=== PATIENT | female | born 1940 | race Caucasian/White ===

== ENCOUNTER → 2020-04-12 11:28 | Outpatient (CLI) | payer MEDICARE, OTHER, SELFPAY ==
[2020-04-13 15:52] LABS: COVID19 Sendout Not Detected (Not Detect)
== END ==
PROVIDERS: PCP Physician Assistant Medical; Visit Provider Physician Assistant
DX: Z11.59 Encounter for screening for other viral diseases (principal)
CPT/HCPCS: 87635

== ENCOUNTER 2020-04-15 09:18 | Day surgery (SDC) | payer MEDICARE, OTHER, SELFPAY ==
[2020-04-15] MEDS: PROPARACAINE 0.5% OPHTH SOL 2 DROPS EYE-OP (10:17)
[2020-04-15] MEDS: CATARACT EYE COMPOUND (10 DROPS/SYRINGE) 3 DROPS EYE-OP (10:18)
[2020-04-15 10:26] VITALS: BP 189/79; PULSE 78; RESP 16; TEMP 36.9; O2SAT 100; BMI 23.2
--- NOTE | 2020-04-15 11:15 | P.OP_ITS ---
Operative Date/Time/Diagnoses Pre-op diagnosis: Nuclear Cataract Left eye Post-op diagnosis: same Procedure & Clinicians Same procedure as scheduled: Yes Surgeon: Mars Martines Anesthesia Type: MAC +/- and Sedation Operative Notes Procedure in detail: Patient brought to the operating suite. Tetracaine drops placed in the left eye. Patient was prepped and draped in sterile manner. Wire lid speculum was placed in the eye. Betadine drops were placed on the eye. This was irrigated. Lidocaine jelly was placed on the eye. A paracentesis port was created with a side-port blade. 0.1 mL 1% preservative free lidocaine was injected into the anterior chamber. The anterior chamber was deepened with viscoelastic. 2.6 mm keratome was used to create a temporal clear corneal incision. Cystotome and Utrata forceps were used to create continuous tear capsulorrhexis. Balanced salt solution was used to hydro dissect the nucleus. The phacoemulsification handpiece was inserted and the nucleus was removed using the stop and chop technique. The irrigation aspiration handpiece was inserted and the remaining cortex was removed. Anterior chamber was deepened with viscoe lastic. An Hou ZCB00 intraocular lens with a power of 18.5 was injected into the capsular bag. Irrigation aspiration handpiece was inserted and the remaining viscoelastic was removed. Incision was hydrated with balanced salt solution and found to be leak free with pressure with Weck-Joyce sponges. 0.1 mL Vigamox injected anterior chamber. 0.3 mL Kenalog 10 mg was injected subconjunctivally. Lid speculum was removed. The patient left the operating room in excellent condition. Complications: none Post-operative Condition: stable Disposition: same day surgery
--- NOTE | 2020-04-15 11:15 | PM.PREOP ---
Pre-operative Note Interval Note History & Physical reviewed/Exam performed by Physician: Yes Changes to H&P: No
[2020-04-15] MEDS: MOXIFLOXACIN INJ 5 MG/ML VIAL EYE-OP (11:32)
[2020-04-15] MEDS: LIDOCAINE JELLY 2% 5 ML 1 APPLIC TOP (11:32)
[2020-04-15] MEDS: CHONDROIDTIN/SOD HYALURONATE 1.05 ML SYRINGE INTRAOCULA (11:32)
[2020-04-15] MEDS: PHENYLEPHRINE/LIDOCAINE VIAL (OR) 0.2 ML EYE-OP (11:33)
[2020-04-15] MEDS: TRIAMCINOLONE 50 MG/5 ML VIAL INJ (11:33)
[2020-04-15] MEDS: TETRACAINE 0.5% OPHTH DROPS 4 ML 2 DROPS EYE-OP (11:33)
[2020-04-15] MEDS: BALANCED SALT IRRIG SOLN NO.2 500 ML, EPINEPHrine 1 MG IRR (11:34)
[2020-04-15 11:46] VITALS: BP 156/75; PULSE 67; RESP 16; TEMP 36.4
== END 2020-04-15 12:00 | disposition home or self-care (01) ==
PROVIDERS: PCP Physician Assistant Medical; Referring Provider Ophthalmology; Visit Provider Ophthalmology
PROC: (CPT 66984; principal; 2020-04-15 11:15)
DX: H25.12 Age-related nuclear cataract, left eye (principal); I10 Essential (primary) hypertension
CPT/HCPCS: 66984; J0171; J2250; J3301

== ENCOUNTER → 2025-04-01 09:42 | Outpatient (CLI) | payer MEDICARE, OTHER, SELFPAY ==
--- NOTE | 2025-04-01 09:47 | DI.RAD.S_ITS ---
PROCEDURE: XR LUMBAR SPINE MIN 4V INDICATIONS: BACK PAIN TECHNIQUE: 5 views of the lumbar spine were acquired, including bilateral oblique views. COMPARISON: None. FINDINGS: Bones: 5 nonrib-bearing vertebrae are present. There is straightening of normal lumbar lordosis and severe dextroscoliosis of thoracolumbar spine partially visualized on this study. Moderate to severe spondylitic changes are noted throughout lumbar spine. No acute vertebral body compression fractures. No suspicious bony lesions. Soft tissues: Overlying bowel gas pattern is normal. No suspicious soft tissue calcifications. Oblique images: No pars defects. Bilateral bony foraminal stenosis throughout lumbar spine is seen. IMPRESSION: Moderate to severe degenerative disc disease throughout lumbar spine. No acute vertebral body compression fracture or significant spondylolisthesis. No gross pars defects. Suggestion of extensive bilateral neural foraminal narrowing on oblique views. Scoliosis as above. Dictated by: Kike Haile M.D. on 04/01/2025 at 10:35 Approved by: Kike Haile M.D. on 04/01/2025 at 10:36
== END ==
PROVIDERS: PCP Physician Assistant Medical; Referring Provider Physical Medicine & Rehabilitation; Visit Provider Physical Medicine & Rehabilitation
DX: M51.369 Other intervertebral disc degeneration, lumbar region without mention of lumbar back pain or lower extremity pain (principal); M41.9 Scoliosis, unspecified; M54.9 Dorsalgia, unspecified; M47.816 Spondylosis without myelopathy or radiculopathy, lumbar region; M96.1 Postlaminectomy syndrome, not elsewhere classified; M41.20 Other idiopathic scoliosis, site unspecified
CPT/HCPCS: 72110; 99214

== ENCOUNTER → 2025-04-06 13:40 | Outpatient (CLI) | payer MEDICARE, OTHER, SELFPAY ==
--- NOTE | 2025-04-06 13:41 | DI.MRI.S_ITS ---
PROCEDURE: MR LUMBAR SPINE WO CON INDICATIONS: Scoliosis with hx of lami TECHNIQUE: Noncontrast sagittal T1 spin echo and T2 fast echo, sagittal STIR, and T2 fast spin echo through the lumbar spine. In cases with scoliosis, additional coronal T2 fast spin echo may be performed. COMPARISON: [facility], CR, XR LUMBAR SPINE MIN 4V, 04/01/2025, 9:56. FINDINGS: Image quality: Excellent. Alignment and Curvature: Moderate to severe levoconvex curvature. 3 mm grade 1 anterolisthesis of L1 on L2. 5 mm grade 1 anterolisthesis of L4 on L5. 3 mm grade 1 retrolisthesis of L5 on S1. Bone Marrow: Modic type 1 degenerative endplate edema surrounding the T12-L1 disc space. Partial osseous fusion across the L4-5 and L5-S1 disc spaces. Prior laminectomy changes at the L4-5 level. No fixation hardware is present. Marrow is of normal overall signal. No acute vertebral body compression fractures. Spinal Cord: Conus medullaris terminates at the L1 level. Visualized cord demonstrates normal signal and size. Paraspinous Soft Tissues: 1.8 x 2.7 cm oval hypoattenuating mass lesion (6/22) in the aortocaval region at the level of L3-L4. Grade 3 and grade 4 fatty infiltration of the paraspinous musculature. Hiatal hernia. T12-L1: Severe disc space narrowing with posterior disc-osteophyte complex and moderate bilateral facet hypertrophy. Findings result in moderate narrowing of the spinal canal with mild mass effect on the distal spinal cord but no abnormal cord signal. There is crowding of the lateral recesses as well as moderate to severe right and moderate left neural foraminal narrowing. L1-L2: Loss of disc space height with posterior disc-osteophyte complex as well as bilateral facet hypertrophy and buckling of the ligamentum flavum. Findings result in mild narrowing of the spinal canal with effacement of the right lateral recess as well as severe right and moderate left neural foraminal narrowing. L2-L3: Loss of disc space height with questionable partial osseous fusion of cells posterior disc-osteophyte complex and bilateral facet hypertrophy. Findings result in mild narrowing of the spinal canal with crowding of the right lateral recess and moderate right and qtow-sw-vghsdeyu left neural foraminal narrowing. L3-L4: Loss of disc space height with posterior disc-osteophyte complex as well as moderate to severe bilateral facet hypertrophy and buckling of the ligamentum flavum. Findings result in pryi-zy-jhcnptca narrowing of the spinal canal as well as kmka-yd-nrzdbvyj bilateral neural foraminal narrowing. L4-L5: Postsurgical changes. Grade 1 anterolisthesis with osseous bridging across the disc space as well as bilateral facet hypertrophy. There is mild residual narrowing of the spinal canal as well as moderate bilateral neural foraminal narrowing. L5-S1: Osseous bridging across the disc space with posterior disc-osteophyte complex as well as moderate bilateral facet hypertrophy. Findings result in yljt-fi-wrbmrctp bilateral neural foraminal narrowing without significant spinal canal stenosis. IMPRESSION: 1. Postsurgical changes at the L4-5 level from laminectomy with solid osseous fusion across the disc space. 2. At T12-L1, degenerative changes result in moderate narrowing of the spinal canal with mild mass effect on the distal spinal cord without abnormal cord signal. 3. High-grade neural foraminal narrowing at the T12-L1 and L1-2 levels on the right. 4. Additional moderate to severe multilevel degenerative disc disease and facet hypertrophy as described in the body of the report. Moderate to severe levoconvex curvature. No high-grade spinal canal stenosis. 5. Oval hypoechoic mass is seen in the prevertebral aortocaval region that could represent an enlarged retroperitoneal lymph node. Recommend contrast-enhanced CT of the abdomen and pelvis for further evaluation. Approved by: Lazaro Miller M.D. on 04/08/2025 at 12:46
== END ==
LOC: MRI 13:41
PROVIDERS: PCP Physician Assistant Medical; Referring Provider Physical Medicine & Rehabilitation; Visit Provider Physical Medicine & Rehabilitation
DX: M47.816 Spondylosis without myelopathy or radiculopathy, lumbar region (principal); M47.815 Spondylosis without myelopathy or radiculopathy, thoracolumbar region; M47.817 Spondylosis without myelopathy or radiculopathy, lumbosacral region; M51.369 Other intervertebral disc degeneration, lumbar region without mention of lumbar back pain or lower extremity pain; M48.061 Spinal stenosis, lumbar region without neurogenic claudication; M43.26 Fusion of spine, lumbar region; M96.1 Postlaminectomy syndrome, not elsewhere classified; M41.9 Scoliosis, unspecified; M48.05 Spinal stenosis, thoracolumbar region; M48.8X6 Other specified spondylopathies, lumbar region
CPT/HCPCS: 72148

== ENCOUNTER 2025-04-25 14:43 | Outpatient (CLI) | payer MEDICARE, OTHER, SELFPAY ==
[2025-04-25] VITALS (9 sets, daily range): BP systolic 170–195; BP diastolic 2–83; PULSE 67–83; RESP 11–18; TEMP 36.5; O2SAT 98–100
[2025-04-25] MEDS: MIDAZOLAM 2 MG/2 ML VIAL 1 MG IV (16:23)
--- NOTE | 2025-04-25 16:43 | PM.PROC.IR.1 ---
Date/Time/Diagnoses Date of procedure: 04/25/25 Time of procedure: 16:43 Pre-procedure diagnosis: 1. FACET ARTHROPATHY Post-procedure diagnosis: same Procedure Notes Procedure: 1. Right L4, L5 and S1 MB BLOCKS LA Indications: Noni is referred by MAZIN Hadley for treatment of Right Axial LBP. Physician: Benigno Fry Total Fluoroscopy time (seconds): 12 Total sedation minutes: 13 Complications: none Procedure in detail & Post-procedure care: DESCRIPTION OF PROCEDURE Fluoroscopically guided, contrast-controlled right L4, L5 and S1 medial branch blocks with 0.5cc of 0.5% Marcaine. Following review of allergy and review of potential side effects and complications, including, but not necessarily limited to, infection, allergic reaction, local tissue breakdown, nerve injury, paralysis, stroke and possible , the patient indicated that the patient understood and agreed to proceed. An informed consent document was signed by the patient, witnessed by a nurse, and placed in the patient's chart. After review of previous anaesthesic history and IV conscious sedation the patient was deemed safe to proceed with today?s procedure with IV conscious sedation as ASA class II designation. Safety time-out was performed to confirm patient ID, procedure to be performed and site of procedure. IV sedation was accomplished with a combination of 1mg of Versed was administered by the RN after DO order, titrated to patient comfort during the course of the procedure while the patient remained responsive to all verbal commands In the prone position, following sterile prep and drape of the lumbar region, the right L4, L5 and S1 anatomical location of the medial branch of the dorsal ramus was identified fluoroscopically. Subsequently an anesthetic skin wheal using 1% lidocaine solution was initiated at each of the anatomical spots. Subsequently then a 22-gauge 3.5-inch spinal needle was atraumatically introduced and advanced under fluoroscopic guidance at each of the corresponding sites at the right L4, L5 and S1 MB. After negative aspiration, 0.2 cc of Isovue 200 was injected, confirming placement without vascular or intrathecal uptake. Subsequently then 0.5 cc of 0.5% Marcaine solution was injected at each of the corresponding sites at the right L4, L5 and S1 medial branch locations. The patient tolerated the procedure well without signs or symptoms of complications. The procedure tolerated the procedure well without signs or symptoms of complications prior to transfer to the recovery area continued monitoring without incident. Post-procedure, the patient was monitored initiating provocative activities to measure the amount of relief from block of the facetogenic pain. The patient reported a VAS of 7 prior to the procedure and a post-procedure VAS of 1. It has been a pleasure to assist in the diagnostic and therapeutic care of your patient. POST OP INSTRUCTIONS The patient was provided with a Pain Log to complete over the next several hours and subsequent days prior to the patient's follow up with the ordering physician. If the patient has punchboard assembler relief to the solution applied, then they may be a candidate for medial branch rhizotomy. The patient is aware, was provided, once again, with a Pain Log and will follow up with the referring physician for review and clinical correlation.
== END 2025-04-25 16:58 | disposition home or self-care (01) ==
LOC: RAD 14:43
PROVIDERS: PCP Physician Assistant Medical; Referring Provider Physical Medicine & Rehabilitation; Visit Provider Physical Medicine & Rehabilitation
DX: M47.816 Spondylosis without myelopathy or radiculopathy, lumbar region (principal); M47.817 Spondylosis without myelopathy or radiculopathy, lumbosacral region
CPT/HCPCS: 64493; 64494; 99152; J2250

== ENCOUNTER 2025-06-25 12:36 | Outpatient (CLI) | payer MEDICARE, OTHER, SELFPAY ==
[2025-06-25] VITALS (9 sets, daily range): BP systolic 167–209; BP diastolic 73–87; PULSE 65–90; RESP 14–20; TEMP 36.8; O2SAT 97–100
[2025-06-25] MEDS: MIDAZOLAM 2 MG/2 ML VIAL 1 MG IV (14:17)
[2025-06-25] MEDS: LIDOCAINE 2% INJ MDV 20ML 5 ML INJ (14:23)
--- NOTE | 2025-06-25 14:35 | PM.PROC.IR.1 ---
Date/Time/Diagnoses Date of procedure: 06/25/25 Time of procedure: 14:35 Pre-procedure diagnosis: Lumbar Facet Arthropathy Post-procedure diagnosis: same Procedure Notes Procedure: 1. Right L4, L5 and S1 MB BLOCKS SA Indications: Noni is referred by MAZIN aHdley for treatment of Right Axial LBP. Physician: Benigno Fry Total Fluoroscopy time (seconds): 9 Total sedation minutes: 13 Complications: none Procedure in detail & Post-procedure care: DESCRIPTION OF PROCEDURE Fluoroscopically guided, contrast-controlled right L4, L5 and S1 medial branch blocks with 0.5cc of 2% Lidocaine. Following review of allergy and review of potential side effects and complications, including, but not necessarily limited to, infection, allergic reaction, local tissue breakdown, nerve injury, paralysis, stroke and possible , the patient indicated that the patient understood and agreed to proceed. An informed consent document was signed by the patient, witnessed by a nurse, and placed in the patient's chart. After review of previous anaesthesic history and IV conscious sedation the patient was deemed safe to proceed with today?s procedure with IV conscious sedation as ASA class II designation. Safety time-out was performed to confirm patient ID, procedure to be performed and site of procedure. IV sedation was accomplished with a combination of 1mg of Versed was administered by the RN after DO order, titrated to patient comfort during the course of the procedure while the patient remained responsive to all verbal commands In the prone position, following sterile prep and drape of the lumbar region, the right L4, L5 and S1 anatomical location of the medial branch of the dorsal ramus was identified fluoroscopically. Subsequently an anesthetic skin wheal using 1% lidocaine solution was initiated at each of the anatomical spots. Subsequently then a 22-gauge 3.5-inch spinal needle was atraumatically introduced and advanced under fluoroscopic guidance at each of the corresponding sites at the right L4, L5 and S1 MB. After negative aspiration, 0.2 cc of Isovue 200 was injected, confirming placement without vascular or intrathecal uptake. Subsequently then 0.5 cc of 2% Lidocaine solution was injected at each of the corresponding sites at the right L4, L5 and S1 medial branch locations. The patient tolerated the procedure well without signs or symptoms of complications. The procedure tolerated the procedure well without signs or symptoms of complications prior to transfer to the recovery area continued monitoring without incident. Post-procedure, the patient was monitored initiating provocative activities to measure the amount of relief from block of the facetogenic pain. The patient reported a VAS of 7 prior to the procedure and a post-procedure VAS of 1. It has been a pleasure to assist in the diagnostic and therapeutic care of your patient. POST OP INSTRUCTIONS The patient was provided with a Pain Log to complete over the next several hours and subsequent days prior to the patient's follow up with the ordering physician. If the patient has distillery worker relief to the solution applied, then they may be a candidate for medial branch rhizotomy. The patient is aware, was provided, once again, with a Pain Log and will follow up with the referring physician for review and clinical correlation.
== END 2025-06-25 14:54 | disposition home or self-care (01) ==
LOC: RAD 12:37
PROVIDERS: PCP Physician Assistant Medical; Referring Provider Physical Medicine & Rehabilitation; Visit Provider Physical Medicine & Rehabilitation
DX: M47.816 Spondylosis without myelopathy or radiculopathy, lumbar region (principal); M47.817 Spondylosis without myelopathy or radiculopathy, lumbosacral region
CPT/HCPCS: 64493; 64494; 99152; J2250